=== PATIENT | male | born 1945 | race Caucasian/White ===

== ENCOUNTER 2019-05-20 23:58 | Emergency (ER) | payer OTHER, SELFPAY ==
[2019-05-21 00:25] VITALS: BP 172/83; PULSE 93; RESP 18; TEMP 36.8; O2SAT 97; BMI 27.3
[2019-05-21 01:00] VITALS: BP 141/75; PULSE 69; RESP 17; O2SAT 94
--- NOTE | 2019-05-21 01:03 | ED.ABDPAIN ---
HPI - Abdominal Pain General Chief Complaint: Abdominal Pain Stated Complaint: sharp abd pain - r side Time Seen by Provider: 05/21/19 01:03 Source: patient and family Mode of arrival: Ambulatory Limitations: no limitations History of Present Illness HPI narrative: This is a 74-year-old male comes emergency department with complaint of pain in his right lower quadrant. Patient states it started the morning of the and progressed throughout the day. Patient states he had a large bowel movement and that rapidly increased his pain. Patient states then over time it slowly abated and is only noted when he sits up or moves at this time. Patient states it did not radiate testicles. Does radiate to the back. He doesn't have flank pain. He doesn't have any fevers but he did felt chilled when he had the bowel movement. Patient denies any nausea or vomiting he denies any black or bloody stool. No frequency, dysuria urgency. Patient states that he takes amlodipine and lisinopril for blood pressure. He denies any prior surgery and states he still has appendix. Allergies to medications. Patient's primary care is Dr. Brito. Related Data Allergies Allergy/AdvReac Type Severity Reaction Status Date / Time No Known Drug Allergies Allergy Verified 05/21/19 00:24 Review of Systems Review of Systems ROS Unobtainable: All systems reviewed & are unremarkable except as noted in HPI and below Patient History Medical History (Updated 05/21/19 @ 03:24 by Opal Rubin DO) Hypertension (Acute) Social History Smoking Status: Never smoker Smoking Status: Never smoker alcohol intake frequency: a few times a week Substance Use Type: does not use Exam Narrative Exam Narrative: GENERAL: Alert and oriented x three, well-nourished elderly male in mild distress. HEENT: Head normocephalic, atraumatic, EOMI, pupils reactive, face symmetric, moist mucous membranes NECK: Supple, full range of motion CARDIOVASCULAR: Regular rate and rhythm without murmurs, rubs or gallops. RESPIRATORY: Breath sounds equal bilaterally, no wheezes rales or rhonchi. ABDOMEN: Soft, very mild right lower quadrant tenderness. Normoactive bowel sounds all 4 quadrants. No guarding or rebound, rigidity, no mass : No CVA tenderness EXTREMITIES: Normal range of motion, no clubbing or edema. Neurovascularly intact NEUROLOGICAL: Cranial nerves II through XII grossly intact. Moving all extremities SKIN: Warm, dry, no petechiae, no rashes or lesions. Initial Vital Signs Initial Vital Signs: Vital Signs Temperature 98.2 F 05/21/19 00:25 Pulse Rate 93 H 05/21/19 00:25 Respiratory Rate 18 05/21/19 00:25 Blood Pressure 172/83 H 05/21/19 00:25 Pulse Oximetry 97 05/21/19 00:25 Course Orders Ordered: ED Orders 05/21/19 01:00 Complete Blood Count AUTO DIFF Stat Comprehensive Metabolic Panel Stat Lipase Stat 05/21/19 01:12 CT abdomen pelvis w con Stat 05/21/19 01:55 Urine Microscopic Stat Discontinued Medications Sodium Chloride (Normal Saline 0.9%) 1,000 mls @ 150 mls/hr IV CONT SUDHEER Last Infusion: 05/21/19 03:37 Dose: 0 mls/hr Documented by: Admin: 05/21/19 01:24 Dose: 150 mls/hr Documented by: IRASEMA Vital Signs Vital signs: Vital Signs - 8 hr 05/21/19 00:25 05/21/19 01:00 05/21/19 02:03 Temperature 98.2 F Pulse Rate 93 H 69 69 Respiratory Rate 18 17 17 Blood Pressure 172/83 H Blood Pressure [Left Arm] 141/75 H 142/67 H Pulse Oximetry 97 94 95 05/21/19 03:30 Temperature Pulse Rate 60 Respiratory Rate 20 Blood Pressure Blood Pressure [Left Arm] 146/72 H Pulse Oximetry 98 MDM - Abdominal Pain Lab Data Attestation: I reviewed the patient's lab results. Result diagrams: 05/21/19 01:00 05/21/19 01:00 Labs: Lab Results 05/21/19 05/21/19 05/21/19 Range/Units 01:00 01:00 01:00 WBC 6.0 (4.5-11.0) X10^3/uL RBC 5.12 (4.5-5.9) X10^6/uL Hgb 17.5 (13.5-17.5) g/dL Hct 49.7 (41-53) % MCV 97.0 (80-100) fL MCH 34.2 H (26-34) PG MCHC 35.3 (30-36) % RDW 12.8 (11.6-14.8) % Plt Count 151 (150-400) X10^3/uL Neut % (Auto) 61.8 (50-75) % Lymph % (Auto) 24.6 L (25-40) % Sequoyah % (Auto) 11.6 (3-14) % Eos % (Auto) 1.3 L (2-4) % Baso % (Auto) 0.7 (0-2) % Neut # (Auto) 3700 (1704-2974) /uL Lymph # (Auto) 1500 (2203-1679) /uL Sequoyah # (Auto) 700 (0-900) /uL Eos # (Auto) 100 (0-450) /uL Baso # (Auto) 0 (0-100) /uL Sodium 139 (137-145) mmol/L Potassium 3.8 (3.4-5.1) mmol/L Chloride 104 (98-107) mmol/L Carbon Dioxide 26 (22-32) mmol/L BUN 23 H (9-20) mg/dL Creatinine 1.00 (0.66-1.25) mg/dL Estimated GFR > 60.0 (>60) mL/min BUN/Creatinine Ratio 23.0 H (6-22) Glucose 109 (80-110) mg/dL Calcium 9.0 (8.4-10.2) mg/dL Total Bilirubin 0.5 (0.2-1.3) mg/dL AST 33 (17-59) IU/L ALT 21 (<50) IU/L Alkaline Phosphatase 75 (38-126) U/L Total Protein 7.6 (6.3-8.2) g/dL Albumin 4.4 (3.5-5.0) g/dL Globulin 3.2 (1.7-4.1) g/dL Albumin/Globulin Ratio 1.4 (1.0-2.8) Lipase 260 (23-300) U/L Urine RBC (0-5/HPF) Urine WBC (0-5/HPF) Urine Bacteria (None) Hyaline Casts (None) Ur Culture Indicated? 05/21/19 Range/Units 01:55 WBC (4.5-11.0) X10^3/uL RBC (4.5-5.9) X10^6/uL Hgb (13.5-17.5) g/dL Hct (41-53) % MCV (80-100) fL MCH (26-34) PG MCHC (30-36) % RDW (11.6-14.8) % Plt Count (150-400) X10^3/uL Neut % (Auto) (50-75) % Lymph % (Auto) (25-40) % Sequoyah % (Auto) (3-14) % Eos % (Auto) (2-4) % Baso % (Auto) (0-2) % Neut # (Auto) (3744-9724) /uL Lymph # (Auto) (8424-3701) /uL Sequoyah # (Auto) (0-900) /uL Eos # (Auto) (0-450) /uL Baso # (Auto) (0-100) /uL Sodium (137-145) mmol/L Potassium (3.4-5.1) mmol/L Chloride (98-107) mmol/L Carbon Dioxide (22-32) mmol/L BUN (9-20) mg/dL Creatinine (0.66-1.25) mg/dL Estimated GFR (>60) mL/min BUN/Creatinine Ratio (6-22) Glucose (80-110) mg/dL Calcium (8.4-10.2) mg/dL Total Bilirubin (0.2-1.3) mg/dL AST (17-59) IU/L ALT (<50) IU/L Alkaline Phosphatase (38-126) U/L Total Protein (6.3-8.2) g/dL Albumin (3.5-5.0) g/dL Globulin (1.7-4.1) g/dL Albumin/Globulin Ratio (1.0-2.8) Lipase (23-300) U/L Urine RBC 0-1/hpf (0-5/HPF) Urine WBC None seen (0-5/HPF) Urine Bacteria None seen (None) Hyaline Casts 0-1/lpf (None) Ur Culture Indicated? Cult not indicated Point of care testing: Urine Dip Bedside Urine Glucose Negative Bedside Urine Bilirubin - Negative Bedside Urine Ketone - Negative Urine Specific [place] 1.020 Bedside Urine Occult Blood +/- Bedside Urine pH 6.0 Bedside Urine Protein +/- 15 Bedside Urine Urobilinogen - Negative Bedside Urine Nitrite - Negative Bedside Urine Leukocytes - Negative Esterase Imaging Data CT scan - abdomen: Radiologist's impression: Fat containing right inguinal hernia with some dull Nina type involvement of the urinary bladder is no other evidence of complication. There's no bowel involvement. There's unusual configuration of the right anterolateral urinary bladder wall having a slightly twisted appearance at the origin of this hernia giving the appearance of involvement. The bladder itself does not significantly hernia. It is otherwise unremarkable. The prostate is unremarkable. MDM Narrative Medical decision making narrative: Any major findings. Patient's CT shows a right inguinal hernia with what appears to be causing a twist or pulling on the urinary bladder wall. On recheck patient palpated does appear to have very small area of fat that I'm able to palpate that is mildly tender. I'm not able to reduce it. I did discuss with Dr. Funes, patient's labs do not show major abnormalities, urine shows 0-1 RBCs with no other hematuria. At this time he feels that patient does not require surgery. Patient and I discussed findings and need for close follow-up with General surgery for possible hernia repair in the future. We discussed that if he has any urinary changes or bowel changes that he does need to return immediately for reach EP evaluation. Patient and family are both at bedside and understand. Discharge Plan Departure Patient Disposition: Home Clinical Impression: Hernia, inguinal, right Discharge Date/Time: 05/21/19 03:35 Instructions: Groin Hernia -- Adult Activity Restrictions/Additional Instructions: Follow-up with general surgery for evaluation and possible hernia repair. Your CT today shows a fat containing right inguinal hernia but also appears to be tugging or pulling slightly on the bladder, the bladder does not appear to have herniated itself. You may take ibuprofen and/or Tylenol as needed for pain depending on what you and your physician prefer. I would recommend taking a stool softener such as Colace or MiraLax once daily to encourage soft daily bowel movements. Return to the ER for fevers greater 100.4 F, new or worsening abdominal pain, vomiting, black or bloody stools, if you're not having any bowel movements and or not passing gas or flatus painful urination, blood in your urine or other new or concerning symptoms. Referrals: Angel Funes MD [Physician] -
[2019-05-21 01:11] LABS: Add Manual Diff / Slide Review NO; Basophils Absolute Auto 0 /uL (0-100); Basophils Percent Auto 0.7 % (0-2); Eosinophils Absolute Auto 100 /uL (0-450); Eosinophils Percent Auto 1.3 % (2-4); Hematocrit 49.7 % (41-53); Hemoglobin 17.5 g/dL (13.5-17.5); Lymphocytes Absolute Auto 1500 /uL (1100-4500); Lymphocytes Percent Auto 24.6 % (25-40); Mean Corpuscular HGB Conc 35.3 % (30-36); Mean Corpuscular Hemoglobin 34.2 PG (26-34); Monocytes Absolute Auto 700 /uL (0-900); Monocytes Percent Auto 11.6 % (3-14); Neutrophils Absolute Auto 3700 /uL (1500-7000); Neutrophils Percent Auto 61.8 % (50-75); Platelet Count 151 X10^3/uL (150-400); Red Blood Cell Count 5.12 X10^6/uL (4.5-5.9); Red Cell Distribution Width 12.8 % (11.6-14.8)
--- NOTE | 2019-05-21 01:12 | DI.CT.S_ITS ---
PROCEDURE: CT ABDOMEN PELVIS W CON INDICATIONS: RLQ pain, improved but present TECHNIQUE: After the administration of intravenous contrast, 5 mm thick sections acquired from the diaphragm to the symphysis. 5 mm coronal and sagittal reformats were acquired. For radiation dose reduction, the following was used: automated exposure control, adjustment of mA and/or kV according to patient size. COMPARISON: None. FINDINGS: Image quality: Excellent. ABDOMEN: Lung bases: There is mild subpleural scarring in the lung bases. Heart size is normal. Solid organs: There is a small peripheral hypodense focus in the right hepatic lobe measuring up to 0.4 cm which is too small to characterize but likely represents a cyst. The gallbladder appears within normal limits without calcified gallstones. Biliary system is non-dilated. Pancreas enhances normally. No peripancreatic fat stranding or fluid collections. No pancreatic duct dilatation. The spleen is normal in size. No adrenal nodules. Kidneys demonstrate no hydronephrosis. Peritoneum and bowel: Bowel loops demonstrate normal wall thickness and caliber. The appendix is normal in appearance. There is colonic diverticulosis without acute diverticulitis. No free fluid or air. Nodes and vessels: No retroperitoneal or mesenteric adenopathy by size criteria. Aorta and inferior vena cava are normal in size. Miscellaneous: No ventral hernias. PELVIS: Genitourinary: Bladder wall thickness is normal. Miscellaneous: There is a right inguinal hernia predominantly containing fat. There is slight partial protrusion of the inferolateral aspect of the bladder anteriorly into the base of the hernia. No inguinal adenopathy. Bones: No suspicious bony lesions. No vertebral body compression fractures. IMPRESSION: 1. Right inguinal hernia predominantly containing fat with slight protrusion of the inferolateral aspect of the urinary bladder into the base of the hernia. 2. No evidence of appendicitis. Concordant with preliminary interpretation. Dictated by: Luis Banda M.D. on 05/21/2019 at 8:00 Approved by: Luis Banda M.D. on 05/21/2019 at 8:04
[2019-05-21 01:21] LABS: Alanine Aminotransferase 21 IU/L (<50); Albumin 4.4 g/dL (3.5-5.0); Albumin Globulin Ratio 1.4 (1.0-2.8); Alkaline Phosphatase 75 U/L (38-126); Aspartate Aminotransferase 33 IU/L (17-59); Bilirubin Total 0.5 mg/dL (0.2-1.3); Blood Urea Nitrogen 23 mg/dL (9-20); Carbon Dioxide 26 mmol/L (22-32); Chloride 104 mmol/L (98-107); Estimated Glomerular Filt Rate > 60.0 mL/min (>60); Globulin 3.2 g/dL (1.7-4.1); Glucose 109 mg/dL (80-110); HEMOLYSIS 22 (0-50); Potassium 3.8 mmol/L (3.4-5.1); Sodium 139 mmol/L (137-145); Total Protein 7.6 g/dL (6.3-8.2)
[2019-05-21 01:24] LABS: Lipase 260 U/L (23-300)
[2019-05-21] MEDS: SODIUM CHLORIDE 0.9% 1,000 ML 150 ML IV (01:24)
[2019-05-21 02:03] VITALS: BP 142/67; PULSE 69; RESP 17; O2SAT 95
[2019-05-21 02:06] LABS: Bacteria Urine None Seen; WBC Urine None Seen (0-5/HPF)
[2019-05-21 02:17] LABS: Hyaline Casts Urine 0-1/LPF; RBC Urine 0-1/HPF (0-5/HPF)
[2019-05-21 02:18] LABS: Culture Indicated Urine Cult Not Indicated
[2019-05-21 03:30] VITALS: BP 146/72; PULSE 60; RESP 20; O2SAT 98
== END 2019-05-21 03:35 | disposition home or self-care (01) ==
PROVIDERS: Emergency Provider Emergency Medicine
DX: K40.90 Unilateral inguinal hernia, without obstruction or gangrene, not specified as recurrent (principal); I10 Essential (primary) hypertension
CPT/HCPCS: 36415; 74177; 80053; 81003; 81015; 83690; 85025; 99284

== ENCOUNTER 2019-07-26 07:46 | Day surgery (SDC) | payer OTHER, SELFPAY ==
[2019-07-21 08:36] VITALS: BMI 28.1
[2019-07-26] VITALS (12 sets, daily range): BP systolic 95–175; BP diastolic 55–83; PULSE 52–63; RESP 12–20; TEMP 36.2–36.9; O2SAT 94–99; BMI 28.1
--- NOTE | 2019-07-26 | PATH_ITS ---
[facility] Accession Number: [id number] . 01 Material submitted: . PART A: inguinal area - RIGHT INGUINAL CORD LIPOMA PART B: inguinal area - RIGHT ILEOINGUINAL NERVE . 02 Diagnosis: A. Right Inguinal Cord Lipoma: Benign fibroadipose tissue, consistent with cord lipoma (9.2 x 7.5 x 2.5 cm in aggregate dimension). . B. Right Ilioinguinal Nerve: Peripheral nerve tissue present. [facility] 07/28/2019 1035 Local . 02 Electronically signed: . Swathi Nunez MD, Pathologist NPI- [id number] . 01 Gross description: . (A) Received in formalin, labeled right inguinal cord lipoma, are multiple pieces of saavedra-yellow rubbery adipose tissue (9.2 x 7.5 x 2.5 cm in aggregate) with homogeneous unremarkable cut surfaces. Top Frame Maker tissue submitted in cassettes A1-A5. (B) Received in formalin, labeled right ilioinguinal nerve, is a saavedra- white rubbery nerve segment (length-7.5 cm, diameter-0.1 cm). The resection margins are inked blue. The segment is trisected and entirely submitted in cassettes B1-B3, with one piece in each cassette. The segment will be further serially sectioned at embedding. ([id number]) /I 07/27/2019 1352 Local . 02 Pathologist provided ICD-10: K40.90 . 02 CPT . 779840, 420851 Performed at: [address], [place], [place] [id number] MD Luis Son MD Phone: [phone] Performed at: [facility] [id number] [place] [id number] MD Yuli Neri MD Phone: [phone]
--- NOTE | 2019-07-26 07:59 | P.HP_ITS ---
History of Present Illness History of Present Illness Date Patient Seen: 07/26/19 Time Patient Seen: 07:59 Chief complaint: [id number] Narrative: This patient comes in today for his inguinal hernia repair. To review: this is a 74-year-old man with a history of hypertension who comes in for a right inguinal hernia. He was seen in the ER in May for right lower quadrant pain which came on after a large bowel movement. He had a CT scan which showed a large fat-containing right inguinal hernia with some bladder wall involved in the hernia. He had not previously noticed it, but now he notices pain whenever he strains to have a BM. He has been taking stool softeners to avoid this. He denies any symptoms of obstruction or incarceration. He denies any chronic cough, difficulty with urination, or other source of straining. He rides his bike about 8 miles a day, and takes frequent walks. He broke his arm when he was 10 years old and had set. Otherwise he has never had any surgery. He is on lisinopril and amlodipine for his blood pressure, which he says is always elevated in the doctor's office but is systolic of 120s when he checks it at home. Interval changes: No changes. No bladder infection or rash. ROS: Thirteen system review is negative other than as mentioned below and in HPI. PE: GENERAL: Well groomed and cooperative. Appears stated age. Answers questions promptly and appropriately. Vital signs noted. HENT: Normocephalic, atraumatic. Hearing intact. Oral mucosa is pink and moist. EYES: Conjunctiva pink, sclera white, no periorbital swelling. CARDIOVASCULAR: Regular rate. No pedal edema. RESPIRATORY: Non tachypneic, breathing comfortably on room air. GASTROINTESTINAL: Abdomen soft and non-distended; tiny nontender umbilical hernia GENITALURINARY: No flank tenderness. No left inguinal hernia, partially reducible right inguinal hernia, nontender, normal penis and testicles MUSCULOSKELETAL: Equal tone and mass bilaterally. SKIN: Warm, dry, soft, appropriate color for ethnicity. No other lesions, rashes, or wounds. NEURO: Alert and Oriented X 3. No gross sensory deficits, or cognitive issues. PSYCH: Appropriate affect and mood. Patient History Medical History Hypertension (Acute) Family & Social History Family History Mother Hypertension Father Heart disease Grandmother Gallstones Social History: household members spouse Tobacco & Substance use: Smoking Status Never smoker alcohol intake current alcohol intake frequency 0-2 drinks per day Substance Use Type does not use Meds Home Medications and Allergies Home Medications Medication Instructions Recorded Confirmed Type amlodipine 10 mg tablet 40 mg PO DAILY tab 05/25/19 07/21/19 History lisinopril 10 mg tablet 10 mg PO DAILY 05/25/19 07/21/19 History Allergies Allergy/AdvReac Type Severity Reaction Status Date / Time No Known Drug Allergies Allergy Verified 07/26/19 08:[address] scan - abdomen: Radiologist's impression: Radiologist's impression: Fat containing right inguinal hernia with some dull Nina type involvement of the urinary bladder is no other evidence of complication. There's no bowel involvement. There's unusual configuration of the right anterolateral urinary bladder wall having a slightly twisted appearance at the origin of this hernia giving the appearance of involvement. The bladder itself does not significantly hernia. It is otherwise unremarkable. The prostate is unremarkable. Assessment & Plan Assessment & Plan narrative: In the office on 05/25/19: Had a long discussion with the patient regarding the risks and benefits of inguinal hernia repair. We discussed the possibility of laparoscopic versus open repair. Because it is not easily reducible, I am recommending an open repair. We discussed the risks of bleeding, infection, damage to nearby structures, need for additional procedures, scar tissue formation, chronic pain, mesh infection, need for mesh removal, hernia recurrence. I've told the patient that I would like him to plan on avoiding heavy lifting or strenuous activity for 6 weeks after his hernia repair given that it is a large hernia that were going to repair it open. He has a vacation coming up in June, which is only 4 weeks from now. Have recommended to him that he use a truss in order to keep the hernia reduced as much as possible, and to seek emergency medical care if he develops severe pain, a larger tender bulge that won't reduce, or other concerning symptoms related to the hernia. 35 minutes were spent face to face with the patient and his . More than 50% of the time was spent in counseling and co-ordination of care regarding ideology of hernia, the types of hernia repairs available, the risks and benefits of hernia repair, the potential complications of hernia repair, the expected long- term outcome, and time for answering any of his questions. Today 07/26/2019: I reviewed all of the above with the patient, answered any additional questions, and signed consent for surgery. Plan: Proceed to OR for open right inguinal hernia repair with mesh Quality VTE Deep Vein Thrombosis/Pulmonary Embolism Present on Admission: No
[2019-07-26] MEDS: LACTATED RINGERS 1,000 ML 42 ML IV (08:24)
[2019-07-26] MEDS: CEFAZOLIN 2 GM/100 ML FROZ.PIGGY IV (09:40)
--- NOTE | 2019-07-26 09:56 | SUR.OPER ---
Supine on padded OR bed, head on pillow, arms secured on padded arm boards at <90 degrees abduction, legs uncrossed, safety belt at thigh, tape over blanket over lower legs.
[2019-07-26] MEDS: BUPIVACAINE 0.25% W/ EPI 30 ML VIAL 60 ML INJ (10:02)
[2019-07-26] MEDS: BUPIVACAINE LIPOSOME 266 MG/20 ML VIAL INJ (10:52)
--- NOTE | 2019-07-26 11:49 | PM.OP.1 ---
Operative Date/Time/Diagnoses Date of procedure: 07/26/19 Time of procedure: 11:49 Pre-op diagnosis: right inguinal hernia Post-op diagnosis: other (incarcerated right inguinal hernia with multiple cord lipomas and scarred ilioinguinal nerve) Procedure & Clinicians Procedure: 1) open repair of incarcerated right inguinal hernia 2) removal of spermatic cord lipoma 3) excision of damaged ilioinguinal nerve Same procedure as scheduled: Yes Indications: symptomatic right inguinal hernia Surgeon: Sangita Servin Click Yes if Unassisted: Yes Anesthesia Type: General Operative Notes Findings: indirect right inguinal hernia with incarcerated preperitoneal fat, spermatic cord lipoma, and heavily scarred ilioinguinal nerve Specimen(s): other (spermatic cord lipoma, ilioinguinal nerve) Prosthetic devices, grafts, tissues, transplants, or devices: Bard macroporous flat polypropelene mesh Estimated Blood Loss (mL): 15 Procedure in detail: The patient was brought into the OR, placed supine on the OR table, and appropriate preoperative antibiotics were given. Sequential compression devices were placed on both legs and turned on. General anesthesia was induced and the patient was intubated with an LMA by the anesthesiologist. The right lower abdomen and groin were prepped and draped in sterile fashion for inguinal incision. A surgical time out was conducted. Local anesthetic was infiltrated into the skin and a 15 blade was used to make an oblique 10cm incision two finger breadths superior to the inguinal ligament. Dissection was carried down to through the subcutaneous fat and laura's fascia. A large hernia bulge was seen anterior to the aponeurosis of the external oblique. A nikolas was used to encircle the spernatic cord. Careful dissection was used to take down the cremasteric fibers and to free the multiple fatty masses from the spermatic cord. About four large fatty masses were removed from the cord, ligated at their base, and divided with cautery. Each of them was passed off the table and labeled spermatic cord lipoma. I then reduced the stumps of the lipomas through the internal ring into the abdomen. I found that the entire canal floor was weak and attenuated. The hernia sac bulged anterior to the external oblique aponeurosis. Once I finally cleared and reduced the lipomas, I was able to see the relationship of the aponeurosis to the hernia. I opened the aponeurosis after giving generous local anesthetic. There was a moderate indirect inguinal hernia, a very scarred and attenuated ilioinguinal nerve, and a weak inguinal canal floor with no clear evidence of a direct hernia. I divided the damaged nerve as far proximal as I could using Metzenbaum scissors, and tucked the proximal end into muscle. I then gave local anesthetic in the inguinal canal floor, pubic tubercle, and conjoint tendon, using a total of 60mL of 0.25% Marcaine with Epi. I also infiltrated the area with Exparel in small aliquots. I then plicated the transversalis fascia with 2-0 PDS, including bites of inguinal ligament inferiorly and conjoint tendon superiorly. A BARD macroporous inguinal hernia mesh was then brought into the field and shaped to fit the groin. I secured it to the ligaments overlying the pubic tubercle with 2cm overlap, and then secured it to the inguinal ligament inferiorly and the conjoint tendon superiorly with 2-0 PDS suture. I made an opening in the mesh to accommodate the spermatic cord. Once the mesh was secure, I closed the external oblique aponeurosis with 3-0 Vicryl. I the laura's fascia was closed with 3-0 Vicryl. The remaining local anesthetic was given in the skin and soft tissue. The skin was closed with running 4-0 Monocryl subcuticular stitch. The skin edges were sealed with Dermabond. The patient was awakened from anesthesia and extubated. He tolerated the procedure well. Needle, sponge and instrument counts were correct x 2. The patient was transferred to PACU in stable condition. Complications: none Post-operative Condition: stable Disposition: PACU
[2019-07-26] MEDS: LACTATED RINGERS 1,000 ML 120 ML IV (12:16)
== END 2019-07-26 12:54 | disposition home or self-care (01) ==
PROVIDERS: PCP Internal Medicine; Referring Provider Surgery; Visit Provider Surgery
PROC: (CPT 49505; principal; 2019-07-26 09:15)
DX: K40.90 Unilateral inguinal hernia, without obstruction or gangrene, not specified as recurrent (principal); D17.6 Benign lipomatous neoplasm of spermatic cord
CPT/HCPCS: 49505; C1781; C9290; J0690; J1100; J2250; J2405; J2704; J3010

== ENCOUNTER 2020-02-09 22:42 | Emergency (ER) | payer OTHER, SELFPAY ==
[2020-02-09] VITALS (7 sets, daily range): BP systolic 140–178; BP diastolic 73–90; PULSE 104–124; RESP 14–19; TEMP 37.8; O2SAT 94–99; BMI 27.3
--- NOTE | 2020-02-09 22:57 | DI.RAD.S_ITS ---
PROCEDURE: XR CHEST 1V INDICATIONS: cough, fever, chest pain TECHNIQUE: One view of the chest was acquired. COMPARISON: [facility], CT, CT ANGIO CHEST PE PROTOCOL, 02/09/2020, 23:43. [facility], CT, CT ABDOMEN PELVIS W CON, 05/21/2019, 1:26. FINDINGS: Surgical changes and devices: None. Lungs and pleura: An incomplete inspiratory result is noted, causing a crowded appearance to the lung markings. Minimal, patchy opacity can be seen within the lingula. No pneumothorax or significant pleural effusions are seen. Mediastinum: Mediastinal contours appear normal. Heart size is normal. Bones and chest wall: No suspicious bony lesions. Age-appropriate bony degenerative changes are seen. Overlying soft tissues appear unremarkable. IMPRESSION: Minimal lingula consolidation. Differential diagnosis includes infiltrate, atelectasis, and (in light of the subsequently performed PE CT) infarct. Dictated by: Greg Gonzalez M.D. on 02/10/2020 at 7:34 Approved by: Greg Gonzalez M.D. on 02/10/2020 at 7:36
[2020-02-09] MEDS: ASPIRIN 81 MG CHEW TAB 324 MG PO (23:09)
[2020-02-09] MEDS: dilTIAZem 5 MG/ML SDV 20 MG IV (23:09)
[2020-02-09 23:15] LABS: Add Manual Diff / Slide Review NO; Basophils Absolute Auto 100 /uL (0-100); Basophils Percent Auto 0.8 % (0-2); Eosinophils Absolute Auto 100 /uL (0-450); Eosinophils Percent Auto 1.2 % (2-4); Hematocrit 51.2 % (41-53); Hemoglobin 17.6 g/dL (13.5-17.5); Lymphocytes Absolute Auto 3100 /uL (1100-4500); Lymphocytes Percent Auto 30.9 % (25-40); Mean Corpuscular HGB Conc 34.3 % (30-36); Mean Corpuscular Hemoglobin 33.6 PG (26-34); Mean Corpuscular Volume 97.9 fL (80-100); Monocytes Absolute Auto 1200 /uL (0-900); Monocytes Percent Auto 11.4 % (3-14); Neutrophils Absolute Auto 5700 /uL (1500-7000); Neutrophils Percent Auto 55.7 % (50-75); Platelet Count 153 X10^3/uL (150-400); Red Blood Cell Count 5.23 X10^6/uL (4.5-5.9); White Blood Cell Count 10.2 X10^3/uL (4.5-11.0)
[2020-02-09] MEDS: DILTIAZEM 125 MG/125 ML PIGGYBACK IV (23:16)
[2020-02-09] MEDS: SODIUM CHLORIDE 0.9% 1,000 ML 125 ML IV (23:22)
[2020-02-09 23:23] LABS: Alanine Aminotransferase 15 IU/L (<50); Albumin 4.6 g/dL (3.5-5.0); Albumin Globulin Ratio 1.2 (1.0-2.8); Alkaline Phosphatase 78 U/L (38-126); Aspartate Aminotransferase 29 IU/L (17-59); BUN Creatinine Ratio 16.5 (6-22); Bilirubin Total 0.7 mg/dL (0.2-1.3); Blood Urea Nitrogen 18 mg/dL (9-20); Calcium 9.2 mg/dL (8.4-10.2); Carbon Dioxide 28 mmol/L (22-32); Chloride 103 mmol/L (98-107); Creatine Kinase 64 U/L (55-170); Estimated Glomerular Filt Rate > 60.0 mL/min (>60); Globulin 3.7 g/dL (1.7-4.1); Glucose 112 mg/dL (80-110); HEMOLYSIS < 15 (0-50); Magnesium 2.3 mg/dL (1.6-2.3); Potassium 3.5 mmol/L (3.4-5.1); Sodium 140 mmol/L (137-145); Total Protein 8.3 g/dL (6.3-8.2)
[2020-02-09 23:24] LABS: Lactate (Lactic Acid) 1.7 mmol/L (0.7-2.1)
[2020-02-09 23:29] LABS: D Dimer 1615 ng/mL (<230)
[2020-02-09 23:34] LABS: INR 1.1 (0.9-1.3); Prothrombin Time 12.1 SECONDS (10.1-12.7)
[2020-02-09 23:35] LABS: NT-proBNP (BNP-Adult 18+) 49 pg/mL (<450); Troponin I < 0.012 ng/mL (0.01-0.034)
[2020-02-09 23:37] LABS: PTT Partial Thromboplastin Tim 33 SECONDS (26.4-36.2)
--- NOTE | 2020-02-09 23:37 | ED_ITS ---
HPI - Chest Pain General Chief Complaint: Chest Pain Stated Complaint: chest pain Time Seen by Provider: 02/09/20 22:43 Source: patient Mode of arrival: Ambulatory Limitations: no limitations History of Present Illness HPI narrative: 74-year-old male nonsmoker with a history of hypertension presents with his in the chief complaint of left anterior chest pain for the past few hours. He denies any provocation, palliation or radiation. He states that it started while at rest. He feels generally unwell, a bit fatigued and states his heart feels are regular. He thinks he had an episode of an irregular heart rhythm about 6 months ago but does not have a confirmed diagnosis of AFib. He has had a bit of a dry and hacking cough for the past few days. He denies any known fever, runny nose, sore throat or exposure to persons known to have coronavirus. He denies nausea or vomiting. He denies any obvious exertional symptoms. He denies recent travel, history of blood clot. MD complaint: chest pain Onset (ago): hour(s) Duration: constant Onset: during rest Pain location: left chest Severity: moderate Quality: tightness and aching Pain radiation: none Relieving factors: nothing Exacerbating factors: nothing Associated symptoms: cough Related Data Home Medications Medication Instructions Recorded Confirmed amlodipine 10 mg tablet 40 mg PO DAILY tab 05/25/19 08/10/19 lisinopril 10 mg tablet 10 mg PO DAILY 05/25/19 08/10/19 Previous Rx's Medication Instructions Recorded docusate sodium 100 mg PO BID #60 cap 07/26/19 oxycodone 5 mg PO Q4H PRN #30 tab 07/26/19 Allergies Allergy/AdvReac Type Severity Reaction Status Date / Time No Known Drug Allergies Allergy Verified 08/10/19 11:00 Review of Systems Constitutional Constitutional: Denies chills, Denies fatigue, Denies fever(s), Denies frequent falls, Denies lethargy and Denies weakness Eyes Eyes: Denies change in vision, Denies eye discharge, Denies irritation and Denies loss of vision ENT Ears, Nose, Mouth, and Throat: Denies change in voice, Denies dizziness, Denies neck pain, Denies sore throat and Denies throat swelling Cardiovascular Cardiovascular: Reports chest pain, Reports irregular heart rhythm, Reports lightheadedness, Denies palpitations, Denies dyspnea, Denies dyspnea on exertion and Denies orthopnea Respiratory Respiratory: Reports cough, Denies dyspnea, Denies dyspnea on exertion and Denies wheezing Gastrointestinal Gastrointestinal: Denies abdominal pain, Denies change in bowel habits, Denies diarrhea, Denies nausea and Denies vomiting Musculoskeletal Musculoskeletal: Denies neck pain and Denies numbness Integumentary/Breasts Skin/Breast: Denies pruritus, Denies erythema, Denies rash and Denies wounds Neurologic Neurologic: Denies behavioral changes, Denies confusion, Denies dizziness, Denies frequent falls, Denies loss of vision, Denies numbness and Denies weakness Psychiatric Psychiatric: Denies anxiety, Denies behavioral changes, Denies confusion, Denies depression, Denies homicidal ideation and Denies suicidal ideation Endocrine Endocrine: Denies fatigue, Denies flushing and Denies palpitations Hematologic/Lymphatic Hematologic/Lymphatic: Denies easy bruising Allergic/Immunologic Allergic/Immunologic: Denies urticaria, Denies throat swelling and Denies wheezing Patient History Medical History Hypertension (Acute) Surgical History Status post inguinal hernia repair (Acute) Family History Mother Hypertension Father Heart disease Grandmother Gallstones Social History marital status: household members: spouse occupational status: previously employed Smoking Status: Never smoker alcohol intake: current substance use type: does not use Smoking Status: Never smoker alcohol intake frequency: 0-2 drinks per day Alcohol type: wine Substance Use Type: does not use Exam Narrative Exam Narrative: GENERAL: [74] year old patient appears stated age. Well- nourished, well-developed patient, in mild distress. HEAD: Atraumatic. Normocephalic. EYES: Pupils equal round and reactive. Extraocular motions intact. No scleral icterus. No injection or drainage. ENT: Nose without bleeding, purulent drainage. Throat without erythema, tonsillar hypertrophy or exudate. Airway patent. NECK: Trachea midline. Non tender CARDIOVASCULAR: Tachycardic and irregular without murmurs, gallops, or rubs. RESPIRATORY: Clear to auscultation. Breath sounds equal bilaterally. No wheezes, rales, or rhonchi. GASTROINTESTINAL: Abdomen soft, non-tender, nondistended. EXTREMITIES: No edema or joint tenderness. BACK: Nontender without deformity or crepitance. No flank tenderness. NEURO: AOx3. SKIN: No rash or erythema of visible areas Initial Vital Signs Initial Vital Signs: Vital Signs Temperature 100.1 F H 02/09/20 22:52 Pulse Rate 123 H 02/09/20 22:52 Respiratory Rate 18 02/09/20 22:52 Blood Pressure 140/90 02/09/20 22:52 Pulse Oximetry 99 02/09/20 22:52 Course Course Course Narrative: Patient presents with anterior chest pressure in the setting a rapid heart rate. The pain started only 2 hours ago but he does report prior episodes irregularity. He is not anticoagulated, there is uncertain time of onset, and he is in no extremis, therefore he is not a good candidate for cardioversion. His chest pressure is thought to be rate and or PE related as the remainder of his exam and story are not classically ischemic. Upon receipt of elevated Dimer CTA is ordered which confirms multiple PEs and likely early pulmonary infarct. Patient taken off diltiazem and HR is remaining stable in the upper 90s. There is no evidence of R heart strain on EKG, CT, or biochemically. No episodes of BP below 90 at any point. Though he is not likely a candidate for mechanical retrieval or catheter directed lysis the presence of multiple PEs, likely pulmonary infact, and new onset rapid afib would suggest he would be better servied at a larger facility with access to cardiology/pulm. [facility] consulted and they have found a bed at [facility] in [place] with Dr. Ferguson as the accepting. Patient and his understand the diagnosis and are in agreement with the plan. Necessary transfer paperwork completed. Images pushed to [facility]. Orders Ordered: ED Orders 02/09/20 22:43 EKG-12 Lead Stat 02/09/20 22:57 XR chest 1V Stat 02/09/20 23:00 C-Reactive Protein Quant Stat Complete Blood Count AUTO DIFF Stat Comprehensive Metabolic Panel Stat D Dimer Stat Ferritin Stat Lactate (Lactic Acid) Stat Magnesium Stat NT-proBNP (BNP-Adult 18+) Stat Partial Thromboplastin Time Stat Procalcitonin Stat Prothrombin Time INR Stat Troponin & CK Cardiac Panel Stat 02/09/20 23:24 COVID19 -ED/INPAT/OR/L&D Stat 02/09/20 23:30 Blood Culture Stat 02/09/20 23:41 CT angio chest PE protocol Stat 02/10/20 00:04 Urinalysis and Microscopic Stat 02/10/20 00:40 Troponin I Stat Sodium Chloride (Normal Saline 0.9%) 1,000 mls @ 125 mls/hr IV CONT SUDHEER Last Infusion: 02/10/20 00:46 Dose: 0 mls/hr Documented by: Admin: 02/09/20 23:22 Dose: 125 mls/hr Documented by: MIKHAIL DILTIAZEM (Diltiazem 125 Mg/125 [id number]) 125 mg in 125 mls @ 5 mls/hr IV TITRATE SUDHEER; Protocol Last Titration: 02/10/20 00:45 Dose: 0 mg/hr, 0 mls/hr Documented by: Titration: 02/10/20 00:08 Dose: 5 mg/hr, 5 mls/hr Documented by: Titration: 02/09/20 23:52 Dose: 0 mg/hr, 0 mls/hr Documented by: Admin: 02/09/20 23:16 Dose: 5 mg/hr, 5 mls/hr Documented by: MIKHAIL Discontinued Medications Aspirin (Aspirin Chew) 324 mg PO NOW ONE Stop: 02/09/20 22:57 Last Admin: 02/09/20 23:09 Dose: 324 mg Documented by: MIKHAIL Diltiazem HCl (Cardizem) 20 mg IV NOW ONE Stop: 02/09/20 22:57 Last Admin: 02/09/20 23:09 Dose: 20 mg Documented by: MIKHAIL Enoxaparin Sodium (Lovenox) 80 mg 1 mg/kg (80 mg) SUBCUT NOW ONE Stop: 02/10/20 00:44 Last Admin: 02/10/20 00:49 Dose: 80 mg Documented by: MIKHAIL Vital Signs Vital signs: Vital Signs - 8 hr 02/09/20 22:52 02/09/20 23:09 02/09/20 23:23 Temperature 100.1 F H Pulse Rate 123 H 123 H 110 H Respiratory Rate 18 19 Blood Pressure 140/90 155/73 H Pulse Oximetry 99 94 02/09/20 23:24 02/09/20 23:30 02/09/20 23:40 Temperature Pulse Rate 108 H 108 H 104 H Respiratory Rate 17 14 14 Blood Pressure 176/73 H 175/79 H 178/80 H Pulse Oximetry 94 94 95 02/09/20 23:50 02/10/20 00:01 02/10/20 00:10 Temperature Pulse Rate 124 H 140 H 113 H Respiratory Rate 18 16 Blood Pressure 178/81 H 121/86 Pulse Oximetry 95 95 02/10/20 00:20 02/10/20 00:30 02/10/20 00:40 Temperature Pulse Rate 79 82 88 Respiratory Rate 18 16 22 Blood Pressure 140/67 145/94 H 164/112 H Pulse Oximetry 94 94 94 02/10/20 00:50 02/10/20 01:00 02/10/20 01:09 Temperature Pulse Rate 94 H 98 H 99 H Respiratory Rate 23 18 17 Blood Pressure 178/108 H 170/74 H 170/96 H Pulse Oximetry 94 94 91 02/10/20 01:11 02/10/20 01:20 02/10/20 01:30 Temperature Pulse Rate 91 H 97 H 90 Respiratory Rate 15 15 21 Blood Pressure 182/74 H 161/74 H 150/72 H Pulse Oximetry 96 95 92 02/10/20 01:40 Temperature Pulse Rate 96 H Respiratory Rate 21 Blood Pressure 166/73 H Pulse Oximetry 95 MDM - Chest Pain Lab Data Result diagrams: 02/09/20 23:00 02/09/20 23:00 Labs: Lab Results 02/09/20 02/09/20 02/09/20 Range/Units 23:00 23:00 23:00 WBC 10.2 (4.5-11.0) X10^3/uL RBC 5.23 (4.5-5.9) X10^6/uL Hgb 17.6 H (13.5-17.5) g/dL Hct 51.2 (41-53) % MCV 97.9 (80-100) fL MCH 33.6 (26-34) PG MCHC 34.3 (30-36) % RDW 13.0 (11.6-14.8) % Plt Count 153 (150-400) X10^3/uL Neut % (Auto) 55.7 (50-75) % Lymph % (Auto) 30.9 (25-40) % [place] % (Auto) 11.4 (3-14) % Eos % (Auto) 1.2 L (2-4) % Baso % (Auto) 0.8 (0-2) % Neut # (Auto) 5700 (0018-2078) /uL Lymph # (Auto) 3100 (5642-5967) /uL Bollinger # (Auto) 1200 H (0-900) /uL Eos # (Auto) 100 (0-450) /uL Baso # (Auto) 100 (0-100) /uL PT 12.1 (10.1-12.7) SECONDS INR 1.1 (0.9-1.3) APTT 33 (26.4-36.2) SECONDS D-Dimer (<230) ng/mL Sodium 140 (137-145) mmol/L Potassium 3.5 (3.4-5.1) mmol/L Chloride 103 (98-107) mmol/L Carbon Dioxide 28 (22-32) mmol/L BUN 18 (9-20) mg/dL Creatinine 1.09 (0.66-1.25) mg/dL Estimated GFR > 60.0 (>60) mL/min BUN/Creatinine Ratio 16.5 (6-22) Glucose 112 H (80-110) mg/dL Lactate (0.7-2.1) mmol/L Calcium 9.2 (8.4-10.2) mg/dL Magnesium 2.3 (1.6-2.3) mg/dL Ferritin 299 (18-464) ng/mL Total Bilirubin 0.7 (0.2-1.3) mg/dL AST 29 (17-59) IU/L ALT 15 (<50) IU/L Alkaline Phosphatase 78 (38-126) U/L Total Creatine Kinase 64 (55-170) U/L CK-MB (CK-2) TNP CK-MB (CK-2) Rel Index TNP Troponin I < 0.012 (0.01-0.034) ng/mL C-Reactive Protein 4.4 H (<1.0) mg/dL NT-Pro-B Natriuret Pep 49 (<450) pg/mL Total Protein 8.3 H (6.3-8.2) g/dL Albumin 4.6 (3.5-5.0) g/dL Globulin 3.7 (1.7-4.1) g/dL Albumin/Globulin Ratio 1.2 (1.0-2.8) Procalcitonin (<0.5) ng/mL Urine Color Urine Appearance Urine pH (4.5-8.0) Ur Specific [place] (1.000-1.035) Urine Protein (Negative) Urine Glucose (UA) (Negative) g/dL Urine Ketones (NEGATIVE) Urine Occult Blood (Negative) Urine Nitrate (Negative) Urine Bilirubin (NEGATIVE) Urine Urobilinogen (0.2) E.U./dL Ur Leukocyte Esterase (NEGATIVE) Urine RBC (0-5/HPF) Urine WBC (0-5/HPF) Urine Bacteria (None) Ur Culture Indicated? COVID-19 PCR (Negative) 02/09/20 02/09/20 02/09/20 Range/Units 23:00 23:00 23:00 WBC (4.5-11.0) X10^3/uL RBC (4.5-5.9) X10^6/uL Hgb (13.5-17.5) g/dL Hct (41-53) % MCV (80-100) fL MCH (26-34) PG MCHC (30-36) % RDW (11.6-14.8) % Plt Count (150-400) X10^3/uL Neut % (Auto) (50-75) % Lymph % (Auto) (25-40) % Bollinger % (Auto) (3-14) % Eos % (Auto) (2-4) % Baso % (Auto) (0-2) % Neut # (Auto) (0780-6264) /uL Lymph # (Auto) (6855-8111) /uL Bollinger # (Auto) (0-900) /uL Eos # (Auto) (0-450) /uL Baso # (Auto) (0-100) /uL PT (10.1-12.7) SECONDS INR (0.9-1.3) APTT (26.4-36.2) SECONDS D-Dimer 1615 H (<230) ng/mL Sodium (137-145) mmol/L Potassium (3.4-5.1) mmol/L Chloride (98-107) mmol/L Carbon Dioxide (22-32) mmol/L BUN (9-20) mg/dL Creatinine (0.66-1.25) mg/dL Estimated GFR (>60) mL/min BUN/Creatinine Ratio (6-22) Glucose (80-110) mg/dL Lactate 1.7 (0.7-2.1) mmol/L Calcium (8.4-10.2) mg/dL Magnesium (1.6-2.3) mg/dL Ferritin (18-464) ng/mL Total Bilirubin (0.2-1.3) mg/dL AST (17-59) IU/L ALT (<50) IU/L Alkaline Phosphatase (38-126) U/L Total Creatine Kinase (55-170) U/L CK-MB (CK-2) CK-MB (CK-2) Rel Index Troponin I (0.01-0.034) ng/mL C-Reactive Protein (<1.0) mg/dL NT-Pro-B Natriuret Pep (<450) pg/mL Total Protein (6.3-8.2) g/dL Albumin (3.5-5.0) g/dL Globulin (1.7-4.1) g/dL Albumin/Globulin Ratio (1.0-2.8) Procalcitonin 0.05 (<0.5) ng/mL Urine Color Urine Appearance Urine pH (4.5-8.0) Ur Specific [place] (1.000-1.035) Urine Protein (Negative) Urine Glucose (UA) (Negative) g/dL Urine Ketones (NEGATIVE) Urine Occult Blood (Negative) Urine Nitrate (Negative) Urine Bilirubin (NEGATIVE) Urine Urobilinogen (0.2) E.U./dL Ur Leukocyte Esterase (NEGATIVE) Urine RBC (0-5/HPF) Urine WBC (0-5/HPF) Urine Bacteria (None) Ur Culture Indicated? COVID-19 PCR (Negative) 02/09/20 02/10/20 02/10/20 Range/Units 23:24 00:04 00:40 WBC (4.5-11.0) X10^3/uL RBC (4.5-5.9) X10^6/uL Hgb (13.5-17.5) g/dL Hct (41-53) % MCV (80-100) fL MCH (26-34) PG MCHC (30-36) % RDW (11.6-14.8) % Plt Count (150-400) X10^3/uL Neut % (Auto) (50-75) % Lymph % (Auto) (25-40) % Bollinger % (Auto) (3-14) % Eos % (Auto) (2-4) % Baso % (Auto) (0-2) % Neut # (Auto) (4069-2126) /uL Lymph # (Auto) (9763-5952) /uL [place]linger # (Auto) (0-900) /uL Eos # (Auto) (0-450) /uL Baso # (Auto) (0-100) /uL PT (10.1-12.7) SECONDS INR (0.9-1.3) APTT (26.4-36.2) SECONDS D-Dimer (<230) ng/mL Sodium (137-145) mmol/L Potassium (3.4-5.1) mmol/L Chloride (98-107) mmol/L Carbon Dioxide (22-32) mmol/L BUN (9-20) mg/dL Creatinine (0.66-1.25) mg/dL Estimated GFR (>60) mL/min BUN/Creatinine Ratio (6-22) Glucose (80-110) mg/dL Lactate (0.7-2.1) mmol/L Calcium (8.4-10.2) mg/dL Magnesium (1.6-2.3) mg/dL Ferritin (18-464) ng/mL Total Bilirubin (0.2-1.3) mg/dL AST (17-59) IU/L ALT (<50) IU/L Alkaline Phosphatase (38-126) U/L Total Creatine Kinase (55-170) U/L CK-MB (CK-2) CK-MB (CK-2) Rel Index Troponin I < 0.012 (0.01-0.034) ng/mL C-Reactive Protein (<1.0) mg/dL NT-Pro-B Natriuret Pep (<450) pg/mL Total Protein (6.3-8.2) g/dL Albumin (3.5-5.0) g/dL Globulin (1.7-4.1) g/dL Albumin/Globulin Ratio (1.0-2.8) Procalcitonin (<0.5) ng/mL Urine Color Yellow Urine Appearance Clear Urine pH 7.0 (4.5-8.0) Ur Specific [place] 1.010 (1.000-1.035) Urine Protein Negative (Negative) Urine Glucose (UA) Negative (Negative) g/dL Urine Ketones Negative (NEGATIVE) Urine Occult Blood 1+ H (Negative) Urine Nitrate Negative (Negative) Urine Bilirubin Negative (NEGATIVE) Urine Urobilinogen 0.2 (0.2) E.U./dL Ur Leukocyte Esterase Negative (NEGATIVE) Urine RBC 0-1/hpf (0-5/HPF) Urine WBC None seen (0-5/HPF) Urine Bacteria None seen (None) Ur Culture Indicated? Cult not indicated COVID-19 PCR Negative (Negative) Urine Dip Bedside Urine Glucose Negative Bedside Urine Bilirubin - Negative Bedside Urine Ketone - Negative Urine Specific [place] 1.010 Bedside Urine Occult Blood + Bedside Urine pH 7 Bedside Urine Protein - Negative Bedside Urine Urobilinogen - Negative Bedside Urine Nitrite - Negative Bedside Urine Leukocytes - Negative Esterase Imaging Data CT scan - chest: Radiologist's Impression: Multifocal pulmonary emboli present within the right middle, right lower lingular pulmonary arteries. No evidence of right heart strain. Subpleural consolidation within the lingula with surrounding ground-glass likely represents developing pulmonary infarct Critical Care Time Critical Care Time Critical Care Time: Yes Total Critical Care Time: 30 Attestation: The high probability of a clinically significant, sudden or life threatening deterioration of the [CV] system(s) required my full and direct attention, intervention and personal management. The aggregate critical care time was [30] minutes. This time is in addition to time spent performing reported procedures but includes the following: [x] Data Review and interpretation [x] Patient assessment and monitoring of vital signs [x] Documentation [x] Medication orders and management Discharge Plan Departure Patient Disposition: [facility] Clinical Impression: Multiple pulmonary emboli, Atrial fibrillation, new onset, Chest pain, Atrial fibrillation with rapid ventricular response, Embolism, pulmonary with infarction Prescriptions: No Action lisinopril 10 mg tablet 10 mg PO DAILY RF: 0 amlodipine 10 mg tablet 40 mg PO DAILY RF: 0 oxycodone 5 mg tablet 5 mg PO Q4H PRN (Reason: post operative pain) Qty: 30 RF: 0 docusate sodium 100 mg capsule 100 mg PO BID Qty: 60 RF: 0 Referrals: Rudi Brito MD [Primary Care Provider] -
[2020-02-09 23:38] LABS: Procalcitonin 0.05 ng/mL (<0.5)
[2020-02-09 23:41] LABS: C-Reactive Protein Quant 4.4 mg/dL (<1.0)
--- NOTE | 2020-02-09 23:41 | DI.CT.S_ITS ---
PROCEDURE: CT ANGIO CHEST PE PROTOCOL INDICATIONS: Chest pain, dry cough, tachycardia, critical Dimer TECHNIQUE: After the administration of intravenous contrast, 2 mm thick sections acquired from the pulmonary apices to the posterior costophrenic angles. 3-dimensional maximum intensity projection (MIP) coronal and sagittal reformats were then acquired through the thorax. For radiation dose reduction, the following was used: automated exposure control, adjustment of mA and/or kV according to patient size. COMPARISON: [facility], CR, XR CHEST 1V, 02/09/2020, 23:02. [facility], CT, CT ABDOMEN PELVIS W CON, 05/21/2019, 1:26. FINDINGS: Image quality: Excellent. Pulmonary arteries: The bolus of the contrast injection is suboptimal. The main pulmonary artery measures approximately 105 Hounsfield units. Pulmonary artery densities are greater than 250 Hounsfield units are considered to be ideal for evaluation of pulmonary embolism. However, there can be seen apparent pulmonary embolism, which most prominently involves the right lower lobe, yet also seen within the right middle lobe and the lingula. Lungs and pleura: Mild patchy consolidation can be seen within the lingula. Mild dependent atelectasis is seen. A mild degree of subpleural fibrosis is seen. No pleural effusions or pneumothorax. Central and peripheral airways are patent. Mediastinum: Heart size is normal, without pericardial effusion. Coronary artery calcifications are seen. No mediastinal or hilar adenopathy. Thoracic aorta is normal in caliber and enhancement. Esophagus is normal in caliber, without hiatal hernia. Bones and chest wall: No suspicious bony lesions. There is a right likely remote right posterior medial rib fracture, with poor healing. Mild dextroconvex scoliotic curvature is seen. Age-appropriate bony degenerative changes are seen. No acute rib fractures are seen. Thyroid gland is small in size. No axillary or supraclavicular adenopathy. Abdomen: Visualized upper abdominal solid organs appear normal in the early arterial phase of enhancement. IMPRESSION: Limited study demonstrating bilateral pulmonary emboli. If clinically appropriate, please consider a repeat/confirmatory CT pulmonary angiogram examination 24 hours following this examination. A small amount of lingular infiltrate versus infarct can be seen. Incidental note is made of: Mild dependent atelectasis Mild subpleural fibrotic change Coronary artery calcification Dextroconvex scoliotic curvature Apparent remote right posterior rib fracture Note: No significant discrepancy from the preliminary report. Dictated by: Greg Gonzalez M.D. on 02/10/2020 at 7:25 Approved by: Greg Gonzalez M.D. on 02/10/2020 at 7:32
[2020-02-09 23:46] LABS: COVID19 -Nasal RAPID Negative (Negative)
[2020-02-09 23:58] LABS: Ferritin 299 ng/mL (18-464)
[2020-02-10] VITALS (18 sets, daily range): BP systolic 121–187; BP diastolic 67–112; PULSE 79–140; RESP 15–23; O2SAT 91–96
[2020-02-10 00:18] LABS: Bacteria Urine None Seen; WBC Urine None Seen (0-5/HPF)
[2020-02-10 00:19] LABS: Appearance Urine UA CLEAR; Bilirubin Urine UA NEGATIVE (NEGATIVE); Color Urine UA YELLOW; Glucose Urine UA NEGATIVE (Negative); Ketones Urine UA NEGATIVE (NEGATIVE); Leukocyte Esterase Urine UA NEGATIVE (NEGATIVE); Nitrite Urine UA NEGATIVE (Negative); Occult Blood Urine UA 1+ (Negative); Protein Urine UA NEGATIVE (Negative); Urobilinogen Urine UA 0.2 E.U./dL (0.2)
[2020-02-10 00:30] LABS: Culture Indicated Urine Cult Not Indicated; RBC Urine 0-1/HPF (0-5/HPF)
[2020-02-10] MEDS: ENOXAPARIN 100 MG/ML SYRINGE 80 MG SUBCUT (00:49)
[2020-02-10 01:12] LABS: Troponin I < 0.012 ng/mL (0.01-0.034)
== END 2020-02-10 03:37 | disposition short-term general hospital (02) ==
PROVIDERS: Emergency Provider Emergency Medicine; PCP Internal Medicine
DX: I26.99 Other pulmonary embolism without acute cor pulmonale (principal); I48.91 Unspecified atrial fibrillation; I10 Essential (primary) hypertension; R05 Cough
CPT/HCPCS: 36415; 71045; 71275; 80053; 81001; 81003; 82550; 82728; 83605; 83735; 83880; 84145; 84484; 85025; 85379; 85610; 85730; 86140; 87040; 87635; 93005; 96365; 96366; 96372; 96375; 99285; 99291; J1650; Q9967

== ENCOUNTER → 2020-04-11 07:54 | Outpatient (CLI) | payer OTHER, SELFPAY ==
[2020-04-11 10:20] LABS: Alanine Aminotransferase 17 IU/L (<50); Aspartate Aminotransferase 28 IU/L (17-59)
== END ==
PROVIDERS: PCP Internal Medicine; Referring Provider Internal Medicine; Visit Provider Internal Medicine Clinical Cardiac Electrophysiology
DX: I48.91 Unspecified atrial fibrillation (principal)
CPT/HCPCS: 36415; 84450; 84460

== ENCOUNTER → 2020-05-10 10:23 | Outpatient (CLI) | payer OTHER, SELFPAY ==
[2020-05-10 12:08] LABS: Add Manual Diff / Slide Review NO; Basophils Absolute Auto 0 /uL (0-100); Basophils Percent Auto 0.4 % (0-2); Eosinophils Absolute Auto 100 /uL (0-450); Eosinophils Percent Auto 1.2 % (2-4); Hematocrit 52.4 % (41-53); Hemoglobin 17.6 g/dL (13.5-17.5); Lymphocytes Absolute Auto 2800 /uL (1100-4500); Lymphocytes Percent Auto 51.7 % (25-40); Mean Corpuscular HGB Conc 33.6 % (30-36); Mean Corpuscular Hemoglobin 33.2 PG (26-34); Mean Corpuscular Volume 98.9 fL (80-100); Monocytes Absolute Auto 600 /uL (0-900); Monocytes Percent Auto 11.5 % (3-14); Neutrophils Absolute Auto 1900 /uL (1500-7000); Neutrophils Percent Auto 35.2 % (50-75); Platelet Count 151 X10^3/uL (150-400); White Blood Cell Count 5.4 X10^3/uL (4.5-11.0)
[2020-05-10 12:47] LABS: Alanine Aminotransferase 19 IU/L (<50); Albumin 4.3 g/dL (3.5-5.0); Albumin Globulin Ratio 1.3 (1.0-2.8); Alkaline Phosphatase 68 U/L (38-126); Aspartate Aminotransferase 33 IU/L (17-59); BUN Creatinine Ratio 18.4 (6-22); Bilirubin Total 0.5 mg/dL (0.2-1.3); Blood Urea Nitrogen 19 mg/dL (9-20); Calcium 9.6 mg/dL (8.4-10.2); Carbon Dioxide 28 mmol/L (22-32); Chloride 105 mmol/L (98-107); Estimated Glomerular Filt Rate > 60.0 mL/min (>60); Globulin 3.2 g/dL (1.7-4.1); Glucose 87 mg/dL (80-110); HEMOLYSIS < 15 (0-50); Potassium 5.2 mmol/L (3.4-5.1); Sodium 139 mmol/L (137-145); Total Protein 7.5 g/dL (6.3-8.2)
== END ==
PROVIDERS: PCP Internal Medicine; Referring Provider Internal Medicine; Visit Provider Internal Medicine
DX: I26.99 Other pulmonary embolism without acute cor pulmonale (principal)
CPT/HCPCS: 36415; 80053; 85025

== ENCOUNTER → 2020-07-18 07:31 | Outpatient (CLI) | payer MEDICARE, SELFPAY ==
[2020-07-18 09:02] LABS: BUN Creatinine Ratio 20.8 (6-22); Blood Urea Nitrogen 22 mg/dL (9-20); Carbon Dioxide 30 mmol/L (22-32); Chloride 105 mmol/L (98-107); Cholesterol 168 mg/dL (140-199); Estimated Glomerular Filt Rate > 60.0 mL/min (>60); Glucose 92 mg/dL (80-110); HDL Cholesterol 51 mg/dL (40-60); HEMOLYSIS < 15 (0-50); LDL Cholesterol Calculated 82 mg/dL (<100); Magnesium 2.2 mg/dL (1.6-2.3); Potassium 4.4 mmol/L (3.4-5.1); Sodium 139 mmol/L (137-145); Triglycerides 173 mg/dL (35-150)
[2020-07-18 09:28] LABS: TSH w/ Reflex to FT4 3.78 uIU/mL (0.47-4.68)
== END ==
PROVIDERS: PCP Internal Medicine; Referring Provider Internal Medicine; Visit Provider Internal Medicine
DX: I10 Essential (primary) hypertension (principal); E78.2 Mixed hyperlipidemia; I26.93 Single subsegmental thrombotic pulmonary embolism without acute cor pulmonale
CPT/HCPCS: 36415; 80048; 80061; 83735; 84443

== ENCOUNTER → 2020-10-14 11:07 | Outpatient (CLI) | payer MEDICARE, SELFPAY ==
[2020-10-14 13:47] LABS: COVID19 -Nasal RAPID Negative (Negative)
== END ==
PROVIDERS: PCP Internal Medicine; Visit Provider Student in an Organized Health Care Education/Training Program
DX: Z01.812 Encounter for preprocedural laboratory examination (principal); Z20.822 Contact with and (suspected) exposure to COVID-19
CPT/HCPCS: 87635; C9803

== ENCOUNTER 2020-10-15 06:57 | Day surgery (SDC) | payer MEDICARE, SELFPAY ==
[2020-10-15] MEDS: PROPARACAINE 0.5% OPHTH SOL 2 DROPS EYE-OP (07:10)
[2020-10-15] MEDS: CATARACT EYE COMPOUND (10 DROPS/SYRINGE) 3 DROPS EYE-OP (07:16)
[2020-10-15 07:19] VITALS: BP 151/91; PULSE 73; RESP 18; TEMP 36.2; O2SAT 99; BMI 28.1
--- NOTE | 2020-10-15 08:38 | PM.PREOP ---
Pre-operative Note Interval Note History & Physical reviewed/Exam performed by Physician: Yes Changes to H&P: No
--- NOTE | 2020-10-15 08:38 | PM.OP.1 ---
Operative Date/Time/Diagnoses Pre-op diagnosis: Nuclear Cataract Left eye Post-op diagnosis: same Procedure & Clinicians Same procedure as scheduled: Yes Surgeon: Favian Petersen Anesthesia Type: MAC +/- and Sedation Operative Notes Procedure in detail: Patient brought to the operating suite. Tetracaine drops placed in the left eye. Patient was prepped and draped in sterile manner. Wire lid speculum was placed in the eye. Betadine drops were placed on the eye. This was irrigated. Lidocaine jelly was placed on the eye. A paracentesis port was created with a side-port blade. 0.1 mL 1% preservative free lidocaine was injected into the anterior chamber. The anterior chamber was deepened with viscoelastic. 2.6 mm keratome was used to create a temporal clear corneal incision. Cystotome and Utrata forceps were used to create continuous tear capsulorrhexis. Balanced salt solution was used to hydro dissect the nucleus. The phacoemulsification handpiece was inserted and the nucleus was removed using the stop and chop technique. the iris was floppy and miotic. The irrigation aspiration handpiece was inserted and the remaining cortex was removed. Anterior chamber was deepened with viscoelastic. An Dickinson [id number] intraocular lens with a power of 17.5 was injected into the capsular bag. Irrigation aspiration handpiece was inserted and the remaining viscoelastic was removed. Incision was hydrated with balanced salt solution and found to be leak free with pressure with Weck-Goldie sponges. 0.1 mL Vigamox injected anterior chamber. 0.3 mL Kenalog 10 mg was injected subconjunctivally. Lid speculum was removed. The patient left the operating room in excellent condition. Complications: none Post-operative Condition: stable Disposition: same day surgery
[2020-10-15] MEDS: MOXIFLOXACIN INJ 4 MG/0.8 ML VIAL 0.5 MG EYE-OP (09:00)
[2020-10-15] MEDS: PHENYLEPHRINE/LIDOCAINE VIAL (OR) 0.2 ML EYE-OP (09:00)
[2020-10-15] MEDS: TETRACAINE 0.5% OPHTH DROPS 4 ML 2 DROPS EYE-OP (09:01)
[2020-10-15] MEDS: CHONDROIDTIN/SOD HYALURONATE 1.05 ML SYRINGE INTRAOCULA (09:01)
[2020-10-15] MEDS: LIDOCAINE 2% (GLYDO) 6 ML GEL TOP (09:01)
[2020-10-15] MEDS: BALANCED SALT IRRIG SOLN NO.2 500 ML, EPINEPHrine 1 MG IRR (09:01)
[2020-10-15] MEDS: TRIAMCINOLONE 50 MG/5 ML VIAL INJ (09:01)
[2020-10-15 09:10] VITALS: BP 124/72; PULSE 64; RESP 16; TEMP 36.6; O2SAT 98
== END 2020-10-15 09:30 | disposition home or self-care (01) ==
PROVIDERS: PCP Internal Medicine; Referring Provider Internal Medicine; Visit Provider Ophthalmology
PROC: (CPT 66984; principal; 2020-10-15 08:45)
DX: H25.12 Age-related nuclear cataract, left eye (principal); I10 Essential (primary) hypertension; I48.91 Unspecified atrial fibrillation; Z86.711 Personal history of pulmonary embolism; Z79.01 Long term (current) use of anticoagulants
CPT/HCPCS: 66984; J0171; J2250; J3301

== ENCOUNTER → 2020-10-28 09:04 | Outpatient (CLI) | payer MEDICARE, SELFPAY ==
[2020-10-28 11:19] LABS: COVID19 -Nasal RAPID Negative (Negative)
== END ==
PROVIDERS: PCP Internal Medicine; Visit Provider Student in an Organized Health Care Education/Training Program
DX: Z01.812 Encounter for preprocedural laboratory examination (principal); Z20.822 Contact with and (suspected) exposure to COVID-19
CPT/HCPCS: 87635; C9803

== ENCOUNTER 2020-10-29 06:57 | Day surgery (SDC) | payer MEDICARE, SELFPAY ==
[2020-10-29] MEDS: PROPARACAINE 0.5% OPHTH SOL 2 DROPS EYE-OP (07:23)
[2020-10-29 07:24] VITALS: BP 180/79; PULSE 65; RESP 18; TEMP 36.6; O2SAT 99
[2020-10-29] MEDS: CATARACT EYE COMPOUND (10 DROPS/SYRINGE) 3 DROPS EYE-OP (07:26)
[2020-10-29 07:28] VITALS: BMI 28.1
--- NOTE | 2020-10-29 08:03 | P.OP_ITS ---
Operative Date/Time/Diagnoses Pre-op diagnosis: Nuclear cataract right eye Procedure & Clinicians Procedure: Cataract Surgery Same procedure as scheduled: Yes Surgeon: Favian Petersen Anesthesia Type: MAC +/- and Sedation Operative Notes Procedure in detail: Patient brought to the operating suite. Tetracaine drops placed in the right eye. Marking instrument was used to marianela the vertical and horizontal meridians. Patient was prepped and draped in sterile manner. Wire lid speculum was placed in the eye. Marking instrument was used to marianela the 100 degree meridian. Betadine drops were placed on the eye. This was irrigated. Lidocaine jelly was placed on the eye. A paracentesis port was created with a side-port blade. 0.1 mL 1% preservative free lidocaine was injected into the anterior chamber. The anterior chamber was deepened with viscoelastic. 2.6 mm keratome was used to create a temporal clear corneal incision. The pupil was floppy and miotic. A 6.25 mm malyugin ring was used to enlarge the pupil Cystotome and Utrata forceps were used to create continuous tear capsulorrhexis. Balanced salt solution was used to hydro dissect the nucleus. The phacoemulsification handpiece was inserted and the nucleus was removed using the stop and chop technique. The irrigation aspiration handpiece was inserted and the remaining cortex was removed. Anterior chamber was deepened with viscoelastic. An Dickinson [id number] intraocular lens with a power of 19.0 was injected into the capsular bag. The malyugin ring was removed. Irrigation a spiration handpiece was inserted and the remaining viscoelastic was removed. The lens was rotated to the 100 degree meridian. Incision was hydrated with balanced salt solution and found to be leak free with pressure with Weck-Goldie sponges. 0.1 mL Vigamox injected anterior chamber. 0.3 mL Kenalog 10 mg was injected subconjunctivally. Lid speculum was removed. The patient left the operating room in excellent condition. Complications: none Post-operative Condition: stable Disposition: same day surgery
--- NOTE | 2020-10-29 08:03 | PM.PREOP ---
Pre-operative Note Interval Note History & Physical reviewed/Exam performed by Physician: Yes Changes to H&P: No
[2020-10-29] MEDS: PHENYLEPHRINE/LIDOCAINE VIAL (OR) 0.2 ML EYE-OP (08:23)
[2020-10-29] MEDS: MOXIFLOXACIN INJ 4 MG/0.8 ML VIAL 0.5 MG EYE-OP (08:24)
[2020-10-29] MEDS: CHONDROIDTIN/SOD HYALURONATE 1.05 ML SYRINGE INTRAOCULA (08:24)
[2020-10-29] MEDS: BALANCED SALT IRRIG SOLN NO.2 500 ML, EPINEPHrine 1 MG IRR (08:25)
[2020-10-29] MEDS: TETRACAINE 0.5% OPHTH DROPS 4 ML 2 DROPS EYE-OP (08:25)
[2020-10-29] MEDS: LIDOCAINE 2% (GLYDO) 6 ML GEL TOP (08:25)
[2020-10-29] MEDS: TRIAMCINOLONE 50 MG/5 ML VIAL INJ (08:25)
== END 2020-10-29 08:50 | disposition home or self-care (01) ==
PROVIDERS: PCP Internal Medicine; Referring Provider Ophthalmology; Visit Provider Ophthalmology
PROC: (CPT 66984; principal; 2020-10-29 08:15)
DX: H25.11 Age-related nuclear cataract, right eye (principal); I10 Essential (primary) hypertension
CPT/HCPCS: 66984; J0171; J2250; J3010; J3301; V2787

== ENCOUNTER → 2021-04-10 13:33 | Outpatient (CLI) | payer MEDICARE, SELFPAY ==
--- NOTE | 2021-04-30 07:13 | PM.CARDMON.1 ---
[employer] Report Referral & Results Date Patient Seen: 04/10/21 Requesting provider: Rudi Brito Indication: Atrial fibrillation Duration of monitoring (days): 7 Diary information: There are no patient events to review Data: Minimum heart rate identified was 34 beats per minute at 03:52 on 04/17/2021 Maximum sinus heart rate was 84 beats per minute at 15:14 on 04/16/2021 Maximum overall heart rate was 184 beats per minute at 22:08 on 04/12/2021 during a 5 beat run of SVT Approximately 6.1% of identified beats were supraventricular ectopic in origin which would classify them as frequent Approximately 2.4% of identified beats were ventricular ectopic in origin which would classify them as occasional. 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 No atrial fibrillation identified. Very rare very brief runs of SVT also identified
== END ==
PROVIDERS: PCP Internal Medicine; Referring Provider Internal Medicine; Visit Provider Internal Medicine
DX: I48.91 Unspecified atrial fibrillation (principal)
CPT/HCPCS: 93242; 93244

== ENCOUNTER → 2023-06-02 07:47 | Outpatient (CLI) | payer OTHER, SELFPAY ==
[2023-06-02 08:43] LABS: Creatinine Urine Random 106.3 mg/dL
[2023-06-02 08:44] LABS: Add Manual Diff / Slide Review NO; Basophils Absolute Auto 0 /uL (0-100); Basophils Percent Auto 0.6 % (0-2); Eosinophils Absolute Auto 100 /uL (0-450); Eosinophils Percent Auto 2.9 % (2-4); Hematocrit 50.4 % (41-53); Hemoglobin 17.2 g/dL (13.5-17.5); Lymphocytes Absolute Auto 2600 /uL (1100-4500); Lymphocytes Percent Auto 53.8 % (25-40); Mean Corpuscular HGB Conc 34.1 % (30-36); Mean Corpuscular Hemoglobin 34.1 PG (26-34); Monocytes Absolute Auto 500 /uL (0-900); Monocytes Percent Auto 9.8 % (3-14); Neutrophils Absolute Auto 1600 /uL (1500-7000); Neutrophils Percent Auto 32.9 % (50-75); Platelet Count 161 X10^3/uL (150-400); Red Blood Cell Count 5.04 X10^6/uL (4.5-5.9); Red Cell Distribution Width 12.9 % (11.6-14.8); White Blood Cell Count 4.8 X10^3/uL (4.5-11.0)
[2023-06-02 08:47] LABS: Microalbumi Creatinin Ratio Ur 7.5 ug/mg CR (<30); Microalbumin Urine Random 0.8 mg/dL (0-1.6)
[2023-06-02 09:04] LABS: Alanine Aminotransferase 21 IU/L (<50); Albumin 4.4 g/dL (3.5-5.0); Albumin Globulin Ratio 1.3 (1.0-2.8); Alkaline Phosphatase 57 U/L (38-126); Aspartate Aminotransferase 31 IU/L (17-59); BUN Creatinine Ratio 23.2 (6-22); Bilirubin Total 0.6 mg/dL (0.2-1.3); Blood Urea Nitrogen 23 mg/dL (9-20); Calcium 9.8 mg/dL (8.4-10.2); Carbon Dioxide 31 mmol/L (22-32); Chloride 104 mmol/L (98-107); Cholesterol 181 mg/dL (140-199); Estimated Glomerular Filt Rate > 60 mL/min (>60); Globulin 3.5 g/dL (1.7-4.1); Glucose 98 mg/dL (80-110); HDL Cholesterol 63 mg/dL (40-60); HEMOLYSIS 18 (0-50); Hemoglobin A1C% w Est Avg Glu 5.2 % (4.0-6.0); LDL Cholesterol Calculated 92 mg/dL (<100); Sodium 140 mmol/L (137-145); Total Protein 7.9 g/dL (6.3-8.2); Triglycerides 129 mg/dL (35-150)
[2023-06-02 09:05] LABS: Potassium 5.5 mmol/L (3.4-5.1)
[2023-06-02 09:55] LABS: HIV 1 & 2 Ab/Ag 4th Gen Combo NEGATIVE (NEGATIVE); Hep C Virus Ab w/Reflex Quant NEGATIVE s/c (NEGATIVE)
== END ==
PROVIDERS: PCP Family Medicine; Referring Provider Family Medicine; Visit Provider Family Medicine
DX: Z00.00 Encounter for general adult medical examination without abnormal findings (principal); I10 Essential (primary) hypertension
CPT/HCPCS: 36415; 80053; 80061; 82043; 82570; 83036; 85025; 86803; 87389

== ENCOUNTER → 2023-06-14 07:40 | Outpatient (CLI) | payer OTHER, SELFPAY ==
[2023-06-14 08:30] LABS: BUN Creatinine Ratio 24.3 (6-22); Blood Urea Nitrogen 25 mg/dL (9-20); Calcium 9.7 mg/dL (8.4-10.2); Carbon Dioxide 28 mmol/L (22-32); Chloride 105 mmol/L (98-107); Estimated Glomerular Filt Rate > 60 mL/min (>60); Glucose 92 mg/dL (80-110); HEMOLYSIS 21 (0-50); Potassium 5.4 mmol/L (3.4-5.1); Sodium 137 mmol/L (137-145)
== END ==
LOC: LAB 07:41
PROVIDERS: PCP Family Medicine; Referring Provider Family Medicine; Visit Provider Family Medicine
DX: E87.5 Hyperkalemia (principal)
CPT/HCPCS: 36415; 80048

== ENCOUNTER → 2023-07-02 10:28 | Outpatient (CLI) | payer OTHER, SELFPAY ==
[2023-07-02 11:37] LABS: BUN Creatinine Ratio 26.6 (6-22); Blood Urea Nitrogen 25 mg/dL (9-20); Calcium 9.3 mg/dL (8.4-10.2); Carbon Dioxide 25 mmol/L (22-32); Chloride 102 mmol/L (98-107); Estimated Glomerular Filt Rate > 60 mL/min (>60); Glucose 88 mg/dL (80-110); HEMOLYSIS < 15 (0-50); Potassium 4.3 mmol/L (3.4-5.1); Sodium 136 mmol/L (137-145)
[2023-07-07 18:46] LABS: Activated Prot C Resistance 3.1 ratio (2.2-3.5); Antithrombin Activity 102 % (75-135); Antithrombin Antigen 88 % (72-124)
[2023-07-08 17:53] LABS: Protein C Antigen 70 % (60-150)
== END ==
LOC: LAB 10:29
PROVIDERS: PCP Family Medicine; Referring Provider Family Medicine; Visit Provider Family Medicine
DX: I48.91 Unspecified atrial fibrillation (principal); E78.5 Hyperlipidemia, unspecified; Z86.711 Personal history of pulmonary embolism; Z83.2 Family history of diseases of the blood and blood-forming organs and certain disorders involving the immune mechanism; Z79.01 Long term (current) use of anticoagulants
CPT/HCPCS: 36415; 80048; 81240; 85300; 85301; 85302

== ENCOUNTER → 2023-07-23 07:06 | Outpatient (CLI) | payer OTHER, SELFPAY | PROVIDERS: PCP Family Medicine; Referring Provider Family Medicine; Visit Provider Family Medicine | DX: I48.91 Unspecified atrial fibrillation (principal); Z83.2 Family history of diseases of the blood and blood-forming organs and certain disorders involving the immune mechanism; Z79.01 Long term (current) use of anticoagulants; Z86.711 Personal history of pulmonary embolism | CPT/HCPCS: 81240 ==